=== PATIENT | female | born 1965 | race African-American/Black ===

== ENCOUNTER → 2019-12-31 | Outpatient (CLI) | payer OTHER ==
[2019-04-24 15:22] VITALS: BP 167/82
[~2019-12-31] MED LIST: ALBU8.5H6 IH; ASPI-630; ATOR20TA; AZIT250T6 PO; HYDR-3164 PO; PROM25TA10 PO
--- NOTE | 2019-12-31 17:02 | RAD ---
2 view lumbosacral spine and 3 view C-spine HISTORY: Pain 2 view lumbosacral spine: Limited 2 view AP lateral views There is grade 2 anterolisthesis of L5 on S1. The remaining vertebral bodies are aligned. There is mild marginal spurring of endplates and there is sclerotic changes the facets. IMPRESSION: 1. Degenerative changes consistent with discogenic disease and facet arthropathy. 2. Grade 2 anterolisthesis of L5 on S1. 3. No acute findings. End impression 3 view C-spine AP lateral swimmer's projections There is straightening of the normal cervical lordosis. As no loss vertebral stature. Intervertebral disc heights are preserved. There is minimal marginal spurring of endplates at C4-C7. The C7-T1 vertebral bodies are not well seen due to superimposition of shoulders. IMPRESSION: 1. Straightening of the normal cervical lordosis could be secondary muscle spasm but could be positional. 2. Mild degenerative changes. 3. No acute findings. Electronically signed by: Abelardo Dickens III, MD (12/31/2019 4:59 PM) [facility]
== END ==
LOC: RAD 10:48
PROVIDERS: ATTEND Family Medicine
DX: M47.812 Spondylosis without myelopathy or radiculopathy, cervical region (principal); M47.816 Spondylosis without myelopathy or radiculopathy, lumbar region; M43.17 Spondylolisthesis, lumbosacral region
CPT/HCPCS: 72040; 72100

== ENCOUNTER 2021-04-21 03:10 | Emergency (ER) | payer MEDICAID, OTHER ==
[~2021-04-21] VITALS: Ht 162.6 cm; Wt 107.0 kg
--- NOTE | 2021-04-21 04:10 | RAD ---
Left knee x-rays 3 views HISTORY: Left knee pain. FINDINGS: No fracture. No dislocation. Osteoarthritis with joint space narrowing and bone spurring at all 3 compartments. Enthesophytes at the quadriceps and patellar tendons at the upper and lower gan lla. IMPRESSION: No acute osseous injury. Arthropathy of the knee as described above. Electronically signed by: Bradley Iraheta MD (04/21/2021 4:07 AM) [facility]
[2021-04-21] MEDS ORDERED: DICLOFENAC SODIUM 1% TOPICAL GEL 100GM TUBE. TP ONE (04:30)
[2021-04-21] MEDS ORDERED: KETOROLAC 30 MG/ML VIAL. IM ONE (04:30)
--- NOTE | 2021-04-21 04:42 | PHYS DOC ---
Past Medical History Past Medical History: Diabetes-Type II, High Cholesterol, Hypertension Additional Past Medical Histor: Sciatica PAIN ON LEFT SIDE Past Surgical History: Oophorectomy, Tubal ligation Smoking Status: Never Smoker Alcohol Use: None General Adult EDM: Chief Complaint: LOWER EXT PAIN HPI: HPI: 55-year-old female past medical history of diabetes, hypertension hyperlipidemia, presents the ED with complaints of sudden onset left medial knee pain that started around 5:30 PM while patient was getting into her car earlier tonight stating "I feel like the bones are moving in different directions." Reports pain is moved to the lateral aspect of her left knee and is worse when b ending. Has not taken anything for the pain. Patient denies any blunt injury to the knee, no prior history of injury to this joint. No associated fever, joint swelling, joint deformity, radiculopathy, low back pain, rash or increased warmth of the joint. Reports history of left-sided sciatica. States this pain has been intermittent for the past two months, progressively worsening. No h/o gout, arthritis or IVDU. Review of Systems: Review of Systems: Constitutional: Denies fever or chills. [] Eyes: Denies change in visual acuity. [] HENT: Denies nasal congestion or sore throat. [] Respiratory: Denies cough or shortness of breath. [] Cardiovascular: Denies chest pain or edema. [] GI: Denies nausea or vomiting : Denies incontinence or saddle anesthesia Musculoskeletal: Denies back pain or joint swelling Integument: Denies rash or diaphoresis Neurologic: Denies focal weakness or sensory changes. [] Psychiatric: Denies depression or anxiety. [] Heart Score: C/O Chest Pain: No Risk Factors: Risk Factors: DM, Current or recent (<one month) smoker, HTN, HLP, family history of CAD, obesity. Risk Scores: Score 0 - 3: 2.5% MACE over next 6 weeks - Discharge Home Score 4 - 6: 20.3% MACE over next 6 weeks - Admit for Clinical Observation Score 7 - 10: 72.7% MACE over next 6 weeks - Early Invasive Strategies Current Medications: Current Medications Medications (Trade) Dose Ordered Sig/Mehreen Start Time Stop Time Status Last Admin Dose Admin Diclofenac Sodium (Voltaren) 1 edgar 1X ONCE 04/21/21 04:30 04/21/21 04:31 04/21/21 03:53 1 EDGAR Ketorolac Tromethamine (Toradol 30mg Vial) 30 mg 1X ONCE 04/21/21 04:30 04/21/21 04:31 04/21/21 04:09 30 MG Allergies: Allergies: Allergies Coded Allergies Type Severity Reaction Last Updated Verified No Known Drug Allergies 01/12/13 No Physical Exam: PE: Constitutional: Well developed, well nourished, no acute distress, non-toxic appearance. HENT: Normocephalic, atraumatic, Eyes: EOMI, conjunctiva normal, no discharge. Neck: Normal range of motion, supple, Cardiovascular: S1/2 present, regular rhythm Lungs & Thorax: Speaking in full sentences, bilateral equal chest rise, no tachypnea or increased work of breathing Abdomen: soft, no tenderness, truncal obesity Skin: Warm, dry, no erythema, no rash. [] Back: No tenderness, no CVA tenderness. [] Extremities:no cyanosis, no lower extremity edema, equal dp/pt pulses, no ligamentous laxity with Angelica's/reverse Angelica/varus/valgus testing, reports pain over the lateral aspect of patella, no deformity, no swelling or increased warmth, no ankle or hip pain Neurologic: Alert and oriented X 3, normal motor function, normal sensory function, no focal deficits noted. [] Psychologic: Affect normal, judgement normal, mood normal. [] Current Patient Data: Vital Signs: Vital Signs Date Time Temp Pulse Resp B/P (MAP) Pulse Ox O2 Delivery O2 Flow Rate FiO2 04/21/21 03:15 74 20 182/90 (120) 97 Room Air 04/21/21 03:10 98.0 98.0 EKG: EKG: IMAGING REPORT Signed PATIENT: TRAV GARCIA ACCOUNT: [id number] : 1965 LOCATION: ER AGE: 55 SEX: F EXAM STATUS: REG ER ORD. PHYSICIAN: CHRISTINA MCGRAW DO REASON: knee pain PROCEDURE: KNEE LEFT 3V Left knee x-rays 3 views HISTORY: Left knee pain. FINDINGS: No fracture. No dislocation. Osteoarthritis with joint space narrowing and bone spurring at all 3 compartments. Enthesophytes at the quadriceps and patellar tendons at the upper and lower patella. IMPRESSION: No acute osseous injury. Arthropathy of the knee as described above. Electronically signed by: Darron Iraheta MD (04/21/2021 4:07 AM) [facility] DICTATED and SIGNED BY: DARRON IRAHETA MD DATE: 04/21/21 [id number] Radiology/Procedures: Radiology/Procedures: IMAGING REPORT Signed PATIENT: TRAV GARCIA ACCOUNT: [id number] : 1965 LOCATION: ER AGE: 55 SEX: F EXAM STATUS: REG ER ORD. PHYSICIAN: CHRISTINA MCGRAW DO REASON: knee pain PROCEDURE: KNEE LEFT 3V Left knee x-rays 3 views HISTORY: Left knee pain. FINDINGS: No fracture. No dislocation. Osteoarthritis with joint space narrowing and bone spurring at all 3 compartments. Enthesophytes at the quadriceps and patellar tendons at the upper and lower patella. IMPRESSION: No acute osseous injury. Arthropathy of the knee as described above. Electronically signed by: Darron Iraheta MD (04/21/2021 4:07 AM) [facility]CI[facility]O DICTATED and SIGNED BY: DARRON IRAHETA MD DATE: 04/21/21 [id number] 0 Course & Med Decision Making: Course & Med Decision Making Pertinent Labs and Imaging studies reviewed. (See chart for details) Concern for atraumatic spontaneous left knee pain consistent with osteoarthritis and bone spurs. Patient also with asymptomatic, hypertension that completely resolved, likely secondary to pain. On reevaluation pain improved with Toradol and diclofenac gel. Will prescribe gel recommend rice instructions. Will discharge home with strict ED return precautions were given for severe pain, skin color changes, neurologic deficits or traumatic injury. Encouraged urgent outpatient follow-up with PMD for repeat blood pressure check and orthopedic surgery for definitive management of knee pain. Life-threatening processes were considered but are low suspicion at this time, given history, physical exam and ED workup. Pt was educated on all prescription medications and adverse effects. All patient's questions were answered and pt was stable at time of discharge. Life/limb-threatening differential includes but is not limited to, avascular necrosis, septic arthritis, malignancy, compartment syndrome, fracture/ligamentous injury/overuse, seronegative spondyloarthropathies, trauma including dislocation/fracture, Lyme disease, lupus, arthritis differentials or gout/pseudogout. I have spoken with the patient and/or caregivers. I explained the patient's condition, diagnoses and treatment plan based on the information available to me at this time. I have answered the patient and/or caregiver's questions and addressed any concerns. The patient and/or caregivers have a good understanding of patient's diagnosis, condition and treatment plan as can be expected at this point. Vital signs have been stable. Patient's condition is stable and appropriate for discharge from the emergency department. Patient will pursue further outpatient evaluation with primary care physician or other designated or consulting physician as outlined in the discharge instructions. The patient and/or caregivers are agreeable to this plan of care and follow-up instructions have been explained in detail. The patient and/or caregivers have received these instructions in written form and have expressed an understanding of the discharge instructions. The patient and/or caregivers are aware that any significant change of condition or worsening of symptoms should prompt immediate return to this or the closest emergency department or call to 1Kenna Al[facility]renga Disclaimer: Colette Disclaimer: This electronic medical record was generated, in whole or in part, using a voice recognition dictation system. Departure Departure Impression: Primary Impression: Knee pain, left Additional Impressions: Osteoarthritis of left knee Bone spur Hypertension Disposition: 01 HOME / SELF CARE / HOMELESS Condition: STABLE Referrals: NO PCP (PCP) Follow-up with your primary care physician in 24 to 48 hours for blood pressure check OR FOLLOW UP WITH FAMILY MEDICINE: [address] [place] [address] Patient Instructions: Hypertension, Osteoarthritis Additional Instructions: FOLLOW UP WITH ORTHOPEDICS: FOR DEFINITIVE MANAGEMENT of knee pain Orthopaedic Surgery [address] [place], [address] [place] [address] EMERGENCY DEPARTMENT GENERAL DISCHARGE INSTRUCTIONS Thank you for coming to [facility] Emergency Department (ED) today and trusting us with you care. We trust that you had a positive experience in our Emergency Department. If you wish to speak to the department management, you may call the Director at [phone]. YOUR FOLLOW UP INSTRUCTIONS ARE FOLLOWS: 1. Do you have a private Doctor? If you do not have a private doctor, please ask for a resource list of physicians or clinics that may be able to assist you with follow up care. 2. The Emergency Physicain has interpreted your x-rays. The X-Ray specialist will also review them. If there is a change in the findings, you will be notified in 48 hours when at all possible. 3. A lab test or culture has been done, your results will be reviewed and you will be notified if you need a change in treatment. ADDITIONAL INSTRUCTIONS AND INFORMATION: 1. Your care today has been supervised by a physician who is specially trained in emergency care. Many problems require more than one evaluation for a complete diagnosis and treatment. We recommend that you schedule your follow up appointment as recommended to ensure complete treatment of you illness or injury. If you are unable to obtain follow up care and continue to have a problem, or if your condition worsens, we recommend that you return to the ED. 2. We are not able to safely determine your condition over the phone nor are we able to give sound medical advice over the phone. For these safety reasons, if you call for medical advice we will ask you to come to the ED for further evaluation. 3. If you have any questions regarding these discharge instructions please call the ED at [phone]. SAFETY INFORMATION: In the interest of safety, wellness, and injury prevention; we encourage you to wear your sealbelt, if you smoke; quite smoking, and we encourage family to use a protective helmet for bicycling and other sporting events that present an increased risk for head injury. IF YOUR SYMPTOMS WORSEN OR NEW SYMPTOMS DEVELOP, OR YOU HAVE CONCERNS ABOUT YOUR CONDITION; OR IF YOUR CONDITION WORSENS WHILE YOU ARE WAITING FOR YOUR FOLLOW UP APPOINTMENT; EITHER CONTACT YOUR PRIMARY CARE DOCTOR, THE PHYSICIAN WHOSE NAME AND NUMBER YOU WERE GIVEN, OR RETURN TO THE ED IMMEDIATELY. Scripts Diclofenac Sodium (Voltaren Arthritis Pain) 20 Gm Gel..gram. 4 GM TP BID PRN for knee pain MDD grams, #1 EACH Prov: CHRISTINA MCGRAW DO 04/21/21 CHRISTNIA MCGRAW DO Apr 21, 2021 04:42
[2021-04-21 04:46] VITALS: BP 118/64
[2021-04-21] MEDS ORDERED: DICL20GE TP (05:11)
== END 2021-04-21 05:20 | disposition home or self-care (01) ==
LOC: ER 03:10
DX: M17.12 Unilateral primary osteoarthritis, left knee (principal); M25.562 Pain in left knee; M77.9 Enthesopathy, unspecified; I10 Essential (primary) hypertension; E11.9 Type 2 diabetes mellitus without complications; E78.00 Pure hypercholesterolemia, unspecified; Z98.51 Tubal ligation status; Z90.722 Acquired absence of ovaries, bilateral
CPT/HCPCS: 73562; 96372; 99283; J1885